=== PATIENT | male | born 1970 | race Caucasian/White ===

== ENCOUNTER 2024-07-29 15:12 | Outpatient (CLI) | payer OTHER, SELFPAY | END 2024-07-29 15:13 | disposition home or self-care (01) | LOC: AMB 07-30 13:57 | PROVIDERS: Visit Provider Family Medicine | DX: T14.90XA Injury, unspecified, initial encounter (principal); F41.9 Anxiety disorder, unspecified; V42.5XXA Car driver injured in collision with two- or three-wheeled motor vehicle in traffic accident, initial encounter; Y92.410 Unspecified street and highway as the place of occurrence of the external cause | CPT/HCPCS: A0998 ==